=== PATIENT | male | born 1970 | race Caucasian/White ===

== ENCOUNTER 2016-12-24 08:56 | Emergency (ER) | payer SELFPAY ==
[~2016-12-24] VITALS: Ht 193 cm; Wt 115.0 kg
[2016-12-24 09:01] VITALS: BP 146/77; PULSE 98; RESP 18; TEMP 97.7; O2SAT 98
[2016-12-24] MEDS ORDERED: LIDOCAINE HCL 1% 50 ML VIAL ONE (09:20)
--- NOTE | 2016-12-24 09:25 | PD ---
HPI Chief Complaint: Laceration/Skin Injury Time Seen by Provider: 09:20 Travel History International Travel<30 days: No Contact w/Intl Traveler<30days: No Traveled to known affect area: No History of Present Illness HPI was drinking last night and doesn't recall what happened until he woke up and found himself with a big forehead gash. DOES STATE THAT HIS LAST TETANUS FOR 3 YRS AGO denies allergies to meds PFSH Past Medical History Blood Disorders: No Cancer: No Cardiovascular Problems: No Diminished Hearing: No Endocrine: No Gastrointestinal Disorders: No Genitourinary: No Implanted Vascular Access Dvce: No Musculoskeletal: No Neurologic: Yes Psychiatric: No Reproductive: No Respiratory: No Immunizations Current: Yes Seizures: Yes Tetanus Vaccination: < 5 Years Influenza Vaccination: No Past Surgical History Surgical History: No Previous Surgery Other Surgery: No Social History Alcohol Use: Yes (DAILY) Tobacco Use: Yes ( 1 PPD) Substance Use: Yes (MARIJUANA) Allergies-Medications (Allergen,Severity, Reaction): Coded Allergies: No Known Allergies (Verified , 12/24/16) Reported Meds & Prescriptions Reported Meds & Active Scripts Active No Active Prescriptions or Reported Medications Review of Systems Except as stated in HPI: all other systems reviewed are Neg Skin: Positive Lesions (laceration to forehead) Physical Exam Narrative GENERAL: SKIN: Warm and dry. HEAD: Normocephalic. 6x6 cm total size of laceration however in inverted gamma shape-or jesusita sign) not hemorrhaging, but all the way down to frontallis muscle without penetrating it EYES: Pupils equal and round. No scleral icterus. No injection or drainage. ENT: No nasal bleeding or discharge. Mucous membranes pink and moist. NECK: Trachea midline. No JVD. CARDIOVASCULAR: Regular rate and rhythm. RESPIRATORY: No accessory muscle use. Clear to auscultation. Breath sounds equal bilaterally. GASTROINTESTINAL: Abdomen soft, non-tender, nondistended. Hepatic and splenic margins not palpable. MUSCULOSKELETAL: Extremities without clubbing, cyanosis, or edema. No obvious deformities. NEUROLOGICAL: Awake and alert. No obvious cranial nerve deficits. Motor grossly within normal limits. Five out of 5 muscle strength in the arms and legs. Normal speech. PSYCHIATRIC: Appropriate mood and affect; insight and judgment normal. Data Data Last Documented VS Vital Signs Date Time Temp Pulse Resp B/P (MAP) Pulse Ox O2 Delivery O2 Flow Rate FiO2 12/24/16 09:18 89 17 12/24/16 09:01 97.7 146/77 (100) [address] Brain W/O Iv Contrast(Rout) (12/24/16 09:20) Lidocaine 1% Inj (50 Ml) (Xylocaine 1% I (12/24/16 09:20) MDM Medical Decision Making Medical Screen Exam Complete: Yes Emergency Medical Condition: Yes Medical Record Reviewed: Yes Differential Diagnosis ICH V SKULL FX V SCALP LAC Narrative Course CT HEAD DID NOT SHOW NEW ICH ONLY OLD FINDINGS, NO SKULL FX. WILL D/C WITH PO ABX Procedures Procedure Narrative LACERATION LOCATION: [RIGHT FOREHEAD-] LENGTH: [6X6 CM-] NUMBER OF STITCHES/MANUEL: [6 VICRYL 4-0 DERMAL ABSORBABLE SUTURES, 8 SINGLE INTERRUPTED PROLENE 3-0] REPAIR: The area of the laceration was prepped with Betadine and sterilely draped. The laceration was infiltrated with [lido with epi]. The wound was copiously irrigated and explored without evidence of foreign body, tendon injury or neurovascular injury. The wound was closed using [vicryl loop sutures x 6 and prolene 4-0 TIMES 8 SINGLE INTERRUPTED -]. This was a [-dual] layer repair. A sterile dressing was applied. The patient was advised to keep the dressing clean and dry. Patient tolerated the procedure well. Diagnosis Primary Impression: forehead laceration s/p layered repaired Patient Instructions: General Instructions, Laceration (DC) Additional Instructions: SEE YOUR DOCTOR OR RETURN HERE FOR SUTURE REMOVAL IN 7DAYS Scripts Sulfamethoxazole-Trimethoprim (Bactrim DS) 800-160 Mg Tab 1 TAB PO BID for Infection, #14 TAB 0 Refills Prov: Bear Salazar MD 12/24/16 Disposition: 01 DISCHARGE HOME Condition: Stable Bear Salazar MD Dec 24, 2016 09:25
--- NOTE | 2016-12-24 11:45 | RADRPT ---
EXAM DATE/TIME: 12/24/2016 11:19 [facility] COMPARISON: CT BRAIN W/O CONTRAST, January 16, 2016, 23:50. INDICATIONS : Fall, right frontal laceration. RADIATION DOSE: 50.25 CTDIvol (mGy) MEDICAL HISTORY : Seizures. SURGICAL HISTORY : None. ENCOUNTER: Initial ACUITY: 1 day PAIN SCALE: 3/10 LOCATION: Right frontal TECHNIQUE: Multiple contiguous axial images were obtained of the head. Using automated exposure control and adj ustment of the mA and/or kV according to patient size, radiation dose was kept as low as reasonably a chievable to obtain optimal diagnostic quality images. DICOM format image data is available electro nically for review and comparison. FINDINGS: CEREBRUM: The examination demonstrates a small area of infarct involving the watershed distribution posteriorly on the left. This is stable compared to previous exam. No acute hemorrhage is seen. No mass lesion i s identified. This is unchanged an apparent compared to the prior dated 01/16/16. POSTERIOR FOSSA: The cerebellum and brainstem are intact. The 4th ventricle is midline. The cerebellopontine angle i s unremarkable. EXTRACRANIAL: The visualized portion of the orbits is intact. SKULL: The calvaria is intact. No evidence of skull fracture. CONCLUSION: 1. 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 No acute intracranial a bnormality identified. Eyad Horta MD on December 24, 2016 at 11:39 Board Certified Radiologist. This report was verified electronically.
[2016-12-24] MEDS ORDERED: BACT800T5 PO (11:49)
[2016-12-24 12:30] VITALS: BP 124/77; TEMP 97.8
== END 2016-12-24 12:30 | disposition home or self-care (01) ==
LOC: NEPE 08:56
DX: S01.81XA Laceration without foreign body of other part of head, initial encounter (principal); X58.XXXA Exposure to other specified factors, initial encounter
CPT/HCPCS: 12053; 70450

== ENCOUNTER 2016-12-31 12:33 | Emergency (ER) | payer SELFPAY ==
[~2016-12-31] VITALS: Ht 193 cm; Wt 110.0 kg
[~2016-12-31 12:33] MED LIST: BACT800T5 PO
[2016-12-31 12:35] VITALS: BP 128/70; PULSE 82; RESP 13; TEMP 98.6; O2SAT 95
--- NOTE | 2016-12-31 13:36 | PD ---
HPI Chief Complaint: Wound/Suture/Staple Re-Check Time Seen by Provider: 13:34 Travel History International Travel<30 days: No Contact w/Intl Traveler<30days: No Traveled to known affect area: No History of Present Illness HPI 46-year-old male presents to emergency department requesting suture removal from his right forehead. Sutures have been in place for 1 week. Denies fever, vomiting. Denies drainage from the wound site. Symptoms are mild in severity. Has no other medical complaints. No known allergies. No other modifying factors or associated signs and symptoms. PFSH Past Medical History Blood Disorders: No Cancer: No Cardiovascular Problems: No Diminished Hearing: No Endocrine: No Gastrointestinal Disorders: No Genitourinary: No Implanted Vascular Access Dvce: No Musculoskeletal: No Neurologic: Yes Psychiatric: No Reproductive: No Respiratory: No Immunizations Current: Yes Seizures: Yes Past Surgical History Other Surgery: No Social History Alcohol Use: Yes (DAILY) Tobacco Use: Yes ( 1 PPD) Substance Use: Yes (MARIJUANA) Allergies-Medications (Allergen,Severity, Reaction): Coded Allergies: No Known Allergies (Verified , 12/24/16) Reported Meds & Prescriptions Reported Meds & Active Scripts Active Bactrim DS (Sulfamethoxazole-Trimethoprim) 800-160 Mg Tab 1 Tab PO BID Review of Systems Except as stated in HPI: all other systems reviewed are Neg Physical Exam Narrative GENERAL: Well-nourished, well-developed male patient, in no acute distress SKIN: Warm and dry. Right forehead/mid eyebrow with scabbed wound that is well approximated with sutures intact and without erythema, edema, drainage. No signs of infection. HEAD: Atraumatic. Normocephalic. EYES: Pupils equal and round. No scleral icterus. No injection or drainage. ENT: Mucosa pink and moist. Airway patent. NECK: Trachea midline. CARDIOVASCULAR: Regular rate. RESPIRATORY: No accessory muscle use. GASTROINTESTINAL: Rounded. MUSCULOSKELETAL: No obvious deformities. No clubbing. No cyanosis. No edema. NEUROLOGICAL: Awake and alert. Oriented 3. No obvious cranial nerve deficits. Motor grossly within normal limits. Normal speech. PSYCHIATRIC: Appropriate mood and affect; insight and judgment normal. Data Data Last Documented VS Vital Signs Date Time Temp Pulse Resp B/P (MAP) Pulse Ox O2 Delivery O2 Flow Rate FiO2 12/31/16 12:35 98.6 82 13 128/70 (89) 95 Orders Orders Ed Discharge Order (12/31/16 13:36) [facility] Medical Decision Making Medical Screen Exam Complete: Yes Emergency Medical Condition: Yes Medical Record Reviewed: Yes Differential Diagnosis Encounter for suture removal, wound recheck, medical clearance Narrative Course 46-year-old male presents for suture removal of laceration to right forehead/ mid eyebrow area. Wound is well approximated with sutures intact. No signs of infection. Sutures removed. Patient tolerated well. Instructed patient to follow up with primary care provider. Patient verbalizes understanding and agreement with treatment plan. Patient is medically cleared and stable for discharge. Discussed reasons to return to the emergency department. Patient agrees with treatment plan. The patients vital signs are stable and the patient is stable for outpatient follow-up and treatment. Patient discharged home, stable and in no acute distress. Diagnosis Primary Impression: Encounter for removal of sutures Referrals: [facility] Primary Care Physician Patient Instructions: General Instructions, Stitches Removal (ED) Additional Instructions: Follow-up with primary care provider Return to the emergency department immediately for worsening symptoms Med/Other Pt SpecificInfo: No Change to Meds, No Meds Exist/No RX given Disposition: 01 DISCHARGE HOME Condition: Stable Kanika Alvarado Dec 31, 2016 13:36
== END 2016-12-31 14:09 | disposition home or self-care (01) ==
LOC: NEPK 12:33
DX: Z48.02 Encounter for removal of sutures (principal)
CPT/HCPCS: 99281